=== PATIENT | male | born 1990 | race Caucasian/White ===

== ENCOUNTER 2019-02-12 09:17 | Emergency (ER) | payer OTHER ==
[~2019-02-12] VITALS: Ht 177.8 cm; Wt 81.7 kg
[~2019-02-12 09:17] MED LIST: IBUPROFEN200 M1 PO; IBUPROFEN600 MG PO; PENICILLIN V P250 MG PO
== END 2019-02-12 09:50 | disposition home or self-care (01) ==
LOC: ED 09:17
DX: J02.9 Acute pharyngitis, unspecified (principal)

== ENCOUNTER 2019-06-19 18:24 | Emergency (ER) | payer OTHER ==
[~2019-06-19] VITALS: Ht 177.8 cm; Wt 77.1 kg
[2019-06-19] MEDS ORDERED: PROVENTIL HFA6.7 GM INH (18:38)
[2019-06-19] MEDS ORDERED: KEFLEX500 MG PO (19:54)
== END 2019-06-19 20:17 | disposition home or self-care (01) ==
LOC: ED 18:24
DX: L03.114 Cellulitis of left upper limb (principal); L02.414 Cutaneous abscess of left upper limb; F17.200 Nicotine dependence, unspecified, uncomplicated; Z88.2 Allergy status to sulfonamides; Z88.5 Allergy status to narcotic agent
CPT/HCPCS: 10060; 99283-25; A9270